=== PATIENT | male | born 1990 | race Caucasian/White ===

== ENCOUNTER 2017-05-18 13:47 | Emergency (ER) | payer BC ==
[2017-05-18 13:57] VITALS: TEMP 98.2
[2017-05-18] MEDS ORDERED: cefTRIAXone (Rocephin) 250 mg Inj IM STA (15:57)
--- NOTE | 2017-05-18 16:09 | ED PDOC ---
HPI: Male Pain Time Seen by Provider: 05/18/17 16:09 Chief Complaint (Nursing): Male Genitourinary Chief Complaint (Provider): Evaluation of possible STD History Per: Patient History/Exam Limitations: no limitations Onset/Duration Of Symptoms: Days Additional Complaint(s): Patient is a 26 y/o male with no significant past medical history presenting to the emergency department for a possible STD evaluation. Reports that he was in [place] and had intercourse with a sex worker about eight days ago. The condom broke and he started Combir. However, he would like to be switched to [place] recommendations. Denies any symptoms or other complaints. PCP: none provided Past Medical History Reviewed: Historical Data, Nursing Documentation, Vital Signs Vital Signs: Last Vital Signs Temp 98.2 F 05/18/17 13:54 Pulse 82 05/18/17 13:54 Resp 16 05/18/17 13:54 BP 146/81 05/18/17 13:54 Pulse Ox 100 05/18/17 13:54 - Medical History PMH: No Chronic Diseases - Family History Family History: States: No Known Family Hx - Home Medications Home Medications: Ambulatory Orders Medication Instructions Recorded Dolutegravir Sodium [Tivicay] 1 tab PO DAILY #20 tab 05/18/17 Emtricitabine/Tenofovir (Tdf) 1 each PO DAILY #20 tablet 05/18/17 [Truvada 200 mg-300 mg Tablet] - Allergies Allergies/Adverse Reactions: Allergies Allergy/AdvReac Type Severity Reaction Status Date / Time No Known Allergies Allergy Verified 05/18/17 13:53 Review of Systems ROS Statement: Except As Marked, All Systems Reviewed And Found Negative Physical Exam - Reviewed Nursing Documentation Reviewed: Yes Vital Signs Reviewed: Yes - Physical Exam Appears: Positive for: Well, Non-toxic, No Acute Distress Head Exam: Positive for: ATRAUMATIC, NORMAL INSPECTION, NORMOCEPHALIC Skin: Positive for: Normal Color, Warm, Dry Eye Exam: Positive for: Normal appearance Neck: Positive for: Normal, Painless ROM Cardiovascular/Chest: Positive for: Regular Rate, Rhythm Respiratory: Negative for: Accessory Muscle Use, Respiratory Distress Extremity: Positive for: Normal ROM. Negative for: Pedal Edema Neurologic/Psych: Positive for: Alert, Oriented (x3) - Laboratory Results Result Diagrams: 05/18/17 17:33 - ECG O2 Sat by Pulse Oximetry: 100 (RA) Pulse Ox Interpretation: Normal - Progress ED Course And Treament: d/w Dr. Toure HIV nonreactive Will change to truvada/ticavay for 20 days. Patient to f/u outpatient otherwise. Rocephin 250mg IM zithromax 1 gm po Patient noted to have vasovagal response. Patient laid in [facility] with rapid recovery. Medical Decision Making Medical Decision Making: Time: 15:52 Initial impression: possible STD evaluation Initial plan: CMP Chlamydia/GC test Azithromycin 1000 mg PO Rocephin 250 mg IM Rapid HIV screening Rapid plasma reagin test ~ Scribe Attestation: Documented by Miriam Pruitt, acting as a scribe for MAYE Sequeira. Provider Scribe Attestation: All medical record entries made by the Scribe were at my direction and personally dictated by me. I have reviewed the chart and agree that the record accurately reflects my personal performance of the history, physical exam, medical decision making, and the department course for this patient. I have also personally directed, reviewed, and agree with the discharge instructions and disposition. Disposition - Clinical Impression Clinical Impression: Unprotected sex - Patient ED Disposition Is Patient to be Admitted: No - Disposition Referrals: [facility] [Outside] Disposition: Routine/Home Disposition Time: 18:33 Condition: FAIR Prescriptions: Dolutegravir Sodium [Tivicay] 1 tab PO DAILY #20 tab Emtricitabine/Tenofovir (Tdf) [Truvada 200 mg-300 mg Tablet] 1 each PO DAILY # 20 tablet Instructions: Condom Use (ED), Safe Sex (ED) Forms: Hang w/ ([place]izen [place])
[2017-05-18] MEDS ORDERED: cefTRIAXone (Rocephin) 250 mg Inj ONE (17:44)
[2017-05-18 17:57] LABS: ALBUMIN 5.4 g/dL (3.5-5.0); ALT/SGPT 70 U/L (21-72); AST/SGOT 43 U/L (17-59); BLOOD UREA NITROGEN 16 mg/dl (9-20); CALCIUM 10.1 mg/dL (8.4-10.2); GFR AFRICAN-AMERICAN > 60; GFR NON-AFRICAN AMERICAN > 60
[2017-05-18 18:06] LABS: ALB/GLOB RATIO 1.5 (1.0-2.1)
[2017-05-18 18:10] VITALS: RESP 18
[2017-05-18 18:12] VITALS: BP 108/66; PULSE 78
[2017-05-18 18:34] VITALS: O2SAT 100
== END 2017-05-18 18:49 | disposition home or self-care (01) ==
LOC: H.ER 13:47
DX: Z11.3 Encounter for screening for infections with a predominantly sexual mode of transmission (principal)
CPT/HCPCS: 80053; 86592; 87390; 87491; 87591; 96372; 99281; J0696